=== PATIENT | male | born 1995 | race Caucasian/White ===

== ENCOUNTER 2024-01-22 01:31 | Emergency (ER) | payer MEDICAID, SELFPAY ==
[2024-01-22 01:32] VITALS: BP 134/75; PULSE 75; RESP 16; TEMP 36.6; O2SAT 97; BMI 22.1
--- NOTE | 2024-01-22 02:14 | EX.ED.SAOD ---
HPI History of Present Illness Chief Complaint: Substance Abuse Informant: patient Narrative Narrative: Patient presents seeking detox from fentanyl which he uses daily. He has done so for the past week, the last use was about an hour prior to arrival so he is asymptomatic at this time and notes that he has been having very mild if any withdrawal symptoms when he does not use in the last week. He states prior to this he was sober for about 2 months, after going through rehab near the beginning of the year. He states his intent on coming here was removing himself from the drug, but he tells me that he has Suboxone at home but was told by a friend not to use it within a few days of using fentanyl because he could put himself into precipitated withdrawal. [facility] Medical History (Updated 01/22/24 @ 02:[address] Jonathan Garza MD) Opiate addiction Medical History no medical history Home Medications NK 01/22/24 [History Last Taken Unknown] Allergy/AdvReac Type Severity Reaction Status Date / Time No Known Allergies Allergy Verified 01/22/24 01:37 Social History (Updated 01/22/24 @ 02:[address] Jonathan Garza MD) Smoking Status: Current every day smoker tobacco type: cigarettes substance use type: other details: Snorts fentanyl ROS ROS ED Constitutional Constitutional ED: Denies chills or fever(s) Eyes Eyes: Denies change in vision or diplopia ENT ENT ED: Denies rhinorrhea or sore throat Cardiovascular Cardiovascular: Denies chest pain or palpitations Respiratory/Chest Respiratory/Chest: Denies cough or dyspnea Gastrointestinal Gastrointestinal: Denies abdominal pain, diarrhea, nausea or vomiting Genitourinary Genitourinary ED: Denies dysuria or hematuria Musculoskeletal Musculoskeletal: Denies back pain or neck pain Integumentary Denies abscess or rash Neurologic Neurologic: Denies headache(s), paresthesias or weakness Psychiatric Psychiatric: Denies anxiety or suicidal thoughts EXAM Physical Exam Const Vital Signs: 01/22/24 01:32 Temperature 97.8 F Temperature Source Temporal Pulse Rate 75 Respiratory Rate 16 Blood Pressure 134/75 H Blood Pressure Mean 94 Pulse Ox 97 Oxygen Delivery Method Room Air Positive well nourished and well developed General Appearance ED: well developed and NAD HEENT Reports moist mucous membranes normocephalic and atraumatic Eyes PERRL and EOMs intact bilaterally Neck full ROM and supple Resp normal respiratory effort and clear to auscultation bilaterally Cardio regular rate, regular rhythm and no murmurs GI non-tender and non-distended Auscultation: normoactive bowel sounds Palpation: soft Back/Spine no CVA tenderness General Back: other FROM Extremity normal to inspection General Extremety ED: Negative for edema, pulses abnormal or tenderness General Extremity: Negative for edema or pulses abnormal Neuro oriented x3, CN's II-XII intact bilaterally and no sensory deficits noted Sensorium / Orientation: awake and alert Motor Exam: strength 5/5 throughout Skin no rashes or lesions noted and no wounds MDM MDM MDM Narrative Medical decision making narrative: We discussed appropriate use of Suboxone. When he starts feeling withdrawal symptoms tomorrow, if he does, or has significant cravings, it would be reasonable to start Suboxone. He can put himself into precipitated withdrawal if he uses it right now while he has a drug on board. Given this information, he does not want to be admitted he is comfortable going home he states he wants to be on Suboxone already has a prescription to start it, and therefore does not think it will necessarily be helpful to stay here in the hospital which I agree with. We discussed changes minor reasons to return. Discharge Plan Triage Chief Complaint: Substance Abuse ED Provider: Jonathan Garza Dx/Rx/DC Orders Clinical Impression: Opiate abuse, continuous Instructions: ED Opiate Abuse Prescriptions: No Action NK Primary Care Provider: Care Physician,No Primary Referrals: Care Physician,No Primary [Primary Care Provider] - [facility] [Non-Staff] - As Needed Disposition Disposition: Home, Self Care
== END 2024-01-22 02:18 | disposition home or self-care (01) ==
PROVIDERS: Emergency Provider Emergency Medicine; Visit Provider Emergency Medicine
DX: F11.10 Opioid abuse, uncomplicated (principal); F17.210 Nicotine dependence, cigarettes, uncomplicated
CPT/HCPCS: 99282